=== PATIENT | female | born 1995 | race Hispanic/Latino ===

== ENCOUNTER → 2025-09-26 06:41 | Outpatient (REF) | payer OTHER, SELFPAY ==
[2025-09-26 10:21] LABS: Hematocrit 36.6 % (37.0-47.0); Hemoglobin 12.1 g/dL (12.0-16.0); Mean Corp Hgb Conc. 33.1 g/dL (33.0-37.0); Mean Corpuscular Volume 83.9 fL (81.0-99.0); Platelet Count 276 10^3/uL (130-400); Red Cell Dist. Width 13.2 % (11.5-14.5)
[2025-09-26 10:32] LABS: ALT (SGPT) 26 U/L (0-35); AST (SGOT) 31 U/L (14-36); Albumin 3.9 g/dl (3.5-5.0); Alkaline Phosphatase 61 U/L (38-126); Blood Urea Nitrogen 12 mg/dl (7-17); Calcium 8.8 mg/dl (8.4-10.2); Carbon Dioxide 27 mmol/L (22-30); Chloride 104 mmol/L (98-107); Glucose 97 mg/dl (70-99); Potassium 3.9 mmol/L (3.5-5.1); Sodium 133 mmol/L (135-145); Total Protein 6.7 g/dl (6.3-8.2); eGFR > 60.00
== END ==
LOC: CLINIC 06:41
PROVIDERS: ATTENDING PHYSICIAN Nurse Practitioner Adult Health
DX: Z00.00 Encounter for general adult medical examination without abnormal findings (principal)
CPT/HCPCS: 36415; 80053; 85027

== ENCOUNTER → 2025-10-14 19:16 | Outpatient (REF) | payer OTHER, SELFPAY | LOC: CLINIC 19:16 | PROVIDERS: ATTENDING PHYSICIAN Podiatrist | DX: S92.355A Nondisplaced fracture of fifth metatarsal bone, left foot, initial encounter for closed fracture (principal) | CPT/HCPCS: 73630 ==

== ENCOUNTER 2025-10-15 07:12 | Emergency (ER) | payer SELFPAY ==
[2025-10-15 07:17] VITALS: BP 109/64
[2025-10-15] MEDS: NSS 1000 IV (07:43)
[2025-10-15] MEDS: BENADRYL 25 MG IV (07:44)
[2025-10-15] MEDS: REGLAN 10 MG IV (07:44)
[2025-10-15 07:49] VITALS: BP 102/63
--- NOTE | 2025-10-15 08:14 | ED.GENMED ---
History of Present Illness
General
Chief Complaint: Headache
Source: patient
Exam Limitations: none
Time Seen by Provider: 10/15/25 07:22
Nursing documentation reviewed up to this point in time: agreed with
History of Present Illness
History of Present Illness:
Patient is a 30-year-old female who presents to the ER complaining of a headache. She reports headache started gradual last week however has worsened. She took an occasional Tylenol. She reports she was up all night last night because of the
headache. She feels mildly dizzy. No light sensitivity. No prior history headaches. She denies any injury. Denies any neck stiffness.
Past History
Past History
ED Past Medical History: None
ED Past Surgical History: None
Social History
Tobacco: Non-smoker
Alcohol: None
Drug: None
Personal: Single
Living: with family
Phy Exam
General Physical Exam
General Presentation: well appearing
General age: appears stated age
General Skin: warm and dry
General Habitus: normal
General Mental: alert
General Hydration: appears well hydrated
Eye Exam
Eye Exam: PERRL and EOMI
Eye Exam General: PERRL: bilateral and EOM intact: bilateral
Pupil Exam: Bilateral: round and reactive
Neurological Exam
Neurological Exam: alert, oriented x3, no motor deficits and no sensory deficits
Musculoskeletal Exam
Musculoskeletal Exam: full ROM
Skin Exam
Skin Exam: normal color and warm/dry
Psychiatric Exam
Psychiatric Exam: normal mood/affect
Course
Orders/Labs/Results
Orders:
Orders
10/15/25 07:32
CT Head W/o Iv Contrast Urgent
Comment:
Reason For Exam: new onset headache
0.9% Sodium Chloride 1000 ml [Nss] 1,000 ml IV BOLUS
Diphenhydramine [Benadryl] 25 mg IV NOW STA
Metoclopramide [Reglan] 10 mg IV NOW STA
10/15/25 07:34
Test Result ONCE
10/15/25 07:52
Beta Hcg Urine Qualitative Screen [HCG, Urine Qualitative Screen] Urgent
Date Specimen was Collected: 10/15/25
Time Specimen was Collected: 07:35
10/15/25 09:46
Ketorolac [Toradol] 15 mg IV NOW STA
10/15/25 10:54
Acetaminophen [Tylenol] 1,000 mg PO NOW STA
Vital Signs
Initial and Last Documented VS:
Initial Vital Signs
Temp Pulse Resp BP Pulse Ox
97.7 F 75 18 109/64 98
10/15/25 07:17 10/15/25 07:17 10/15/25 07:17 10/15/25 07:17 10/15/25 07:17
Last Documented Vital Signs
Temp Pulse Resp BP Pulse Ox
97.7 F 61 16 96/50 99
10/15/25 07:17 10/15/25 07:49 10/15/25 10:07 10/15/25 10:07 10/15/25 10:07
MDM/Problems Addressed
Differential Diagnosis Includes:
Not limited to headache, migraine less likely cranial hemorrhage
MDM/Problems Addressed:
Patient is a 28-year-old female who presents with headache that started gradually last week and has gotten worse. She has only taken occasional Tylenol. She presents awake alert no acute distress no recent fever she is afebrile no meningismus. No
light sensitivity. She was mildly dizzy. She has no prior history of headaches. She presents awake alert looks uncomfortable however nontoxic. CAT scan negative. Patient was given Reglan fluids Benadryl feeling much improvement will givea dose
of Toradol. Plan for discharge home. She is a patient of [facility] close outpatient follow-up
*Radiology
Radiology exam reviewed: radiology read reviewed
*Pulse Oximetry
SaO2: 99
Oxygen Mode of Delivery: Room air
Patient hypoxic: no
*Critical Care Note
Total Time (30-74mins, 75-104mins- exclusive of procedures): Not Applicable
ED Attending Note
-
Portions of this chart may have been created with voice recognition software.� Occasional wrong word or��sound alike� substitutions may have occurred due to the inherent limitations of voice recognition software.
Discharge Plan
Departure
Patient Disposition: Home (Routine Discharge)
Date of Disposition: 10/15/25
Time of Disposition: 10:54
Patient with high blood pressure during this ER visit?: No
Condition: Fair
Covid-19: Not Applicable
Discharge Problem:
Headache
Instructions: Headache, Adult (DC)
Prescriptions:
No Action
Medication For Pna, Unsure
1 tab PO DAILY
Referrals:
Jan Fernandez MD [Family Provider, Family Practice]
Carlitos Guerrero MD [Active, Neurology]
Activity Restrictions/Additional Instructions:
alternate between ibuprofen and Tylenol. Follow closely with [facility] in the next 2-3 days for reevaluation.
Return if any worsening of symptoms. In addition please follow-up with neurology. Call to make an appointment as soon as possible
Interventions
Interventions:
*Risk Screen - Suicide Last Done: 10/15/25 07:17
*General Assessment Last Done: 10/15/25 07:49
*Neglect/Abuse Screening Last Done: 10/15/25 07:49
*ED COVID-19 Vaccine History Last Done: 10/15/25 07:21
*ED Influenza Vaccine History Last Done: 10/15/25 07:21
[facility] Risk Assessment Tool Last Done: 10/15/25 07:49
ED- Neurological Assessment Last Done: 10/15/25 07:49
Discharge Date and Time
Print Language: [id number]
[2025-10-15 08:20] LABS: HCG, Urine Qualitative Screen Negative
[2025-10-15] MEDS: TORADOL 15 MG IV (10:03)
[2025-10-15 10:07] VITALS: BP 96/50
[2025-10-15] MEDS: TYLENOL 1000 MG PO (11:03)
== END 2025-10-15 11:14 | disposition home or self-care (01) ==
LOC: EMR 07:12
PROVIDERS: Nurse Practitioner; EMERGENCY PHYSICIAN Emergency Medicine; FAMILY PHYSICIAN Family Medicine
DX: R51.9 Headache, unspecified (principal); R42 Dizziness and giddiness
CPT/HCPCS: 96374; 96375; 96361; 99284; 70450; 81025